=== PATIENT | female | born 1960 | race Caucasian/White ===

== ENCOUNTER 2016-09-20 16:57 | Emergency (ER) | payer OTHER ==
[~2016-09-20] VITALS: Ht 162.6 cm; Wt 88.5 kg
[2016-09-20] MEDS ORDERED: ATOR1TAB19 PO (17:05)
[2016-09-20] MEDS ORDERED: LISI-538 PO (17:05)
[2016-09-20] MEDS ORDERED: ASPI81TA21 PO (17:05)
[2016-09-20] MEDS ORDERED: ASPIRIN 81 MG CHEW TABLET PO ONE ×2 (18:00)
[2016-09-20 18:05] LABS: BASO % 0.3 % (0.0-1.0); EOS # 0.1 K/mm3 (0.0-0.50); EOS % 1.4 % (0.0-3.0); LARGE UNSTAINED CELL # 0.2 K/mm3 (0.0-0.4); LARGE UNSTAINED CELL % 2.9 % (0.0-4.0); LYMPH # 2.7 K/mm3 (1.5-4.5); LYMPH % 35.9 % (24.0-44.0); MEAN CORPUSCULAR HEMOGLOBIN 30.5 pg (27.0-33.0); MEAN CORPUSCULAR HGB CONC 33.2 g/dl (32.0-36.5); MEAN CORPUSCULAR VOLUME 91.9 fl (80.0-96.0); MONO # 0.5 K/mm3 (0.0-0.8); MONO % 7.5 % (0.0-5.0); NEUTROPHILS # 3.6 K/mm3 (1.8-7.7); NEUTROPHILS % 51.9 % (36.0-66.0); PLATELET COUNT, AUTOMATED 218 k/mm3 (150-450); RED CELL DISTRIBUTION WIDTH 12.9 % (11.5-14.5); WHITE BLOOD COUNT 6.9 K/mm3 (4.0-10.0)
[2016-09-20 18:16] LABS: ALBUMIN 3.7 GM/DL (3.2-5.2); ALBUMIN/GLOBULIN RATIO 1.16 (1.00-1.93); ALKALINE PHOSPHATASE 102 U/L (45-117); ALT/SGPT 29 U/L (12-78); ANION GAP 5 MEQ/L (8-16); AST/SGOT 22 U/L (15-37); BILIRUBIN,DIRECT 0.1 MG/DL (0.0-0.2); BILIRUBIN,TOTAL 0.5 MG/DL (0.2-1.0); BLOOD UREA NITROGEN 17 MG/DL (7-18); CALCIUM LEVEL 9.1 MG/DL (8.5-10.1); CARBON DIOXIDE LEVEL 31 MEQ/L (21-32); CHLORIDE LEVEL 106 MEQ/L (98-107); CREATININE FOR GFR 1.05 MG/DL (0.55-1.02); GLOMERULAR FILTRATION RATE 57.3 (>51); GLUCOSE, FASTING 86 MG/DL (70-105); POTASSIUM SERUM 3.9 MEQ/L (3.5-5.1); SODIUM LEVEL 142 MEQ/L (136-145); TOTAL PROTEIN 6.9 GM/DL (6.4-8.2)
[2016-09-20] MEDS ORDERED: ISOVUE-370 76% 100ML VIAL (Q9967) As Ordered ONE (18:33)
--- NOTE | 2016-09-20 19:10 | REPUSA ---
CT angiogram of the chest Clinical statement: Chest pain and shortness of breath. Technique: Multiple axial CT images were obtained from the thoracic inlet through the upper abdomen a fter a bolus administration of nonionic intravenous contrast. Coronal and sagittal reconstructions we re also obtained. No comparison is available. Findings: The pulmonary arteries are well-opacified with contrast, with no intraluminal filling defec ts to suggest embolism. The thoracic aorta is unremarkable. Thyroid gland is within normal limits. Th ere is no thoracic lymphadenopathy. There are no pericardial or pleural effusions. The lungs are dwayne r. Limited imaging of the upper abdomen does not demonstrate any acute abnormalities. There is an enh ancing left adrenal nodule measuring 2.5 x 1.9 cm. There are no suspicious osseous lesions. Impression: 1. No evidence of pulmonary embolism. 2. No acute intrapulmonary disease. 3. Left adrenal nodule.
--- NOTE | 2016-09-20 19:36 | ECGEPIP ---
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
[2016-09-20 19:52] VITALS: BP 123/74
--- NOTE | 2016-09-21 06:51 | REP ---
PORTABLE CHEST, ONE VIEW: HISTORY: Chest pain. COMPARISON: 06/18/2009. There is elevation of the right hemidiaphragm. The lungs are clear. The heart is normal in size. The pulmonary vasculature is normal in appearance. IMPRESSION: No acute disease. Signed by Nikos Pena MD 09/21/2016 08:12 A
== END 2016-09-20 19:56 | disposition home or self-care (01) ==
LOC: M ED 16:57 → EDBD 16:57 → M ED 19:56
DX: R00.2 Palpitations (principal); I10 Essential (primary) hypertension; E27.9 Disorder of adrenal gland, unspecified; Z79.82 Long term (current) use of aspirin; Z79.899 Other long term (current) drug therapy

== ENCOUNTER → 2016-12-30 | Outpatient (REF) | payer OTHER ==
[~2016-12-30] MED LIST: ASPI81TA21 PO; ATOR1TAB19 PO; LISI-538 PO
[2016-12-30 17:46] LABS: BASO # 0.1 10^3/uL (0.0-0.2); BASO % 0.8 % (0.0-1.0); EOS # 0.1 10^3/uL (0.0-0.50); EOS % 1.6 % (0.0-3.0); IMMATURE GRANULOCYTE % 0.3 % (0-0); LYMPH # 2.1 10^3/uL (1.5-4.5); LYMPH % 32.8 % (24.0-44.0); MEAN CORPUSCULAR HGB CONC 33.2 g/dl (32.0-36.5); MEAN CORPUSCULAR VOLUME 93.5 fl (80.0-96.0); MONO # 0.6 10^3/uL (0.0-0.8); MONO % 8.8 % (0.0-5.0); NEUTROPHILS # 3.6 10^3/uL (1.8-7.7); NEUTROPHILS % 55.7 % (36.0-66.0); PLATELET COUNT, AUTOMATED 239 10^3/uL (150-450); WHITE BLOOD COUNT 6.4 10^3/uL (4.0-10.0)
[2016-12-30 19:18] LABS: ALBUMIN 3.8 GM/DL (3.2-5.2); ALKALINE PHOSPHATASE 99 U/L (45-117); ALT/SGPT 31 U/L (12-78); ANION GAP 8 MEQ/L (8-16); AST/SGOT 22 U/L (15-37); BILIRUBIN,TOTAL 0.6 MG/DL (0.2-1.0); BLOOD UREA NITROGEN 13 MG/DL (7-18); CALCIUM LEVEL 9.1 MG/DL (8.5-10.1); CARBON DIOXIDE LEVEL 27 MEQ/L (21-32); CHLORIDE LEVEL 107 MEQ/L (98-107); CHOLESTEROL LEVEL 147 MG/DL (<200); CREATININE FOR GFR 0.99 MG/DL (0.55-1.02); GLOMERULAR FILTRATION RATE > 60.0 (>51); GLUCOSE, FASTING 91 MG/DL (70-105); POTASSIUM SERUM 4.4 MEQ/L (3.5-5.1); SODIUM LEVEL 142 MEQ/L (136-145); TOTAL PROTEIN 7.6 GM/DL (6.4-8.2); TRIGLYCERIDES LEVEL 156 MG/DL (<150)
== END ==
LOC: M LAB REF 16:32
PROVIDERS: ATTEND Family Medicine
DX: E78.4 Other hyperlipidemia (principal); R00.2 Palpitations; E27.8 Other specified disorders of adrenal gland; I10 Essential (primary) hypertension

== ENCOUNTER → 2017-03-29 | Outpatient (CLI) | payer OTHER ==
[~2017-03-29] MED LIST changes: -ASPI81TA21 PO; -ATOR1TAB19 PO; +ISOVUE-370 76% 100ML VIAL (Q9967) As Ordered; -LISI-538 PO
== END ==
LOC: M RAD 10:07
DX: E27.8 Other specified disorders of adrenal gland (principal)
CPT/HCPCS: Q9967

== ENCOUNTER → 2018-01-05 | Outpatient (REF) | payer OTHER ==
[2018-01-05 18:33] LABS: HEMATOCRIT 45.9 % (36.0-47.0); HEMOGLOBIN 14.9 g/dl (12.0-15.5); MEAN CORPUSCULAR HEMOGLOBIN 29.8 pg (27.0-33.0); MEAN CORPUSCULAR HGB CONC 32.5 g/dl (32.0-36.5); MEAN CORPUSCULAR VOLUME 91.8 fl (80.0-96.0); PLATELET COUNT, AUTOMATED 208 10^3/uL (150-450); RED CELL DISTRIBUTION WIDTH 13.2 % (11.5-14.5)
[2018-01-05 18:39] LABS: ALBUMIN 3.7 GM/DL (3.2-5.2); ALBUMIN/GLOBULIN RATIO 0.97 (1.00-1.93); ALKALINE PHOSPHATASE 163 U/L (45-117); ALT/SGPT 124 U/L (12-78); ANION GAP 9 MEQ/L (8-16); AST/SGOT 131 U/L (7-37); BILIRUBIN,TOTAL 0.5 MG/DL (0.2-1.0); BLOOD UREA NITROGEN 26 MG/DL (7-18); CALCIUM LEVEL 9.1 MG/DL (8.5-10.1); CARBON DIOXIDE LEVEL 24 MEQ/L (21-32); CHLORIDE LEVEL 105 MEQ/L (98-107); CHOLESTEROL LEVEL 122 MG/DL (<200); CHOLESTEROL RISK RATIO 4.692 (<5); CREATININE FOR GFR 1.02 MG/DL (0.55-1.30); GLUCOSE, FASTING 92 MG/DL (70-100); HDL CHOLESTEROL 26 MG/DL (>40); LDL CHOLESTEROL 55 MG/DL (<100); NON-HDL-C 96 MG/DL; POTASSIUM SERUM 4.8 MEQ/L (3.5-5.1); SODIUM LEVEL 138 MEQ/L (136-145); TOTAL PROTEIN 7.5 GM/DL (6.4-8.2); TRIGLYCERIDES LEVEL 203 MG/DL (<150)
[2018-01-05 18:45] LABS: ADD MANUAL DIFFER YES; DIFF SLIDE NUMBER 309; POSITIVE DIFF POS FLAG; POSITIVE MORPH POS FLAG; WHITE BLOOD COUNT 11.2 10^3/uL (4.0-10.0)
[2018-01-05 19:55] LABS: ATYPICAL LYMPH 3 % (0-5); EOSINOPHILS 1 % (0-5); LYMPHOCYTES 63 % (16-52); MONOCYTES 4 % (0-8); NEUTROPHILS 29 % (35-75)
[2018-01-05 19:56] LABS: PLATELET ESTIMATE NORMAL (NORMAL); SMUDGE CELLS 1+
== END ==
LOC: M LAB REF 16:39
DX: Z00.00 Encounter for general adult medical examination without abnormal findings (principal); J20.8 Acute bronchitis due to other specified organisms; M75.52 Bursitis of left shoulder; R22.9 Localized swelling, mass and lump, unspecified; E78.49 Other hyperlipidemia; I10 Essential (primary) hypertension
CPT/HCPCS: 80053

== ENCOUNTER → 2018-01-24 | Outpatient (REF) | payer OTHER ==
[2018-01-24 18:43] LABS: ALBUMIN 3.4 GM/DL (3.2-5.2); ALBUMIN/GLOBULIN RATIO 1.03 (1.00-1.93); ALKALINE PHOSPHATASE 97 U/L (45-117); ALT/SGPT 58 U/L (12-78); AST/SGOT 38 U/L (7-37); BILIRUBIN,DIRECT 0.2 MG/DL (0.0-0.2); BILIRUBIN,TOTAL 0.6 MG/DL (0.2-1.0); TOTAL PROTEIN 6.7 GM/DL (6.4-8.2)
[2018-01-26 08:10] LABS: HEPATITIS B SURFACE ANTIGEN NEGATIVE (NEGATIVE)
[2018-01-26 08:37] LABS: HEPATITIS C VIRUS ABY INDEX 0.2 INDEX (<0.8)
[2018-01-26 08:38] LABS: HEPATITIS B CORE ANTIBODY IGM NEGATIVE (NEGATIVE)
[2018-01-26 08:40] LABS: HEPATITIS A ANTIBODY IGM NEGATIVE (NEGATIVE)
== END ==
LOC: M LAB REF 17:48
DX: K76.89 Other specified diseases of liver (principal)
CPT/HCPCS: 80076

== ENCOUNTER 2018-02-01 10:17 | Day surgery (SDC) | payer OTHER ==
[2018-02-01] MEDS ORDERED: PROPOFOL 200 MG/20 ML VIAL As Ordered (11:11)
[2018-02-01] MEDS ORDERED: ONDANSETRON 4MG/2ML VIAL (J2405) As Ordered (11:11)
[2018-02-01] MEDS ORDERED: LIDOCAINE 2% INJ 100 MG/5 ML SDV (FOR ANES.) As Ordered (11:11)
[2018-02-01] MEDS ORDERED: KETOROLAC 60 MG/2 ML VIAL (J1885) As Ordered (11:11)
[2018-02-01] MEDS ORDERED: fentaNYL 100 MCG/2 ML INJECTION (J3010) As Ordered (11:12)
[2018-02-01] MEDS ORDERED: MIDAZOLAM INJ 2 MG/2 ML VIAL (J2250) As Ordered (11:12)
[2018-02-01] MEDS ORDERED: KETAMINE HCL 200 MG/20 ML VIAL As Ordered (11:12)
[2018-02-01] MEDS: LR 1,000 ML IV (11:14)
[2018-02-01] MEDS: ceFAZolin SOD 1 GM in D5W MINI-BAG PLUS 50 ML IV (12:32)
[2018-02-01] MEDS: BUPIVACAINE/EPIN 0.25% 30 ML VIAL As Ordered (12:45)
== END 2018-02-01 13:50 | disposition home or self-care (01) ==
LOC: M SDC 10:17
DX: D17.1 Benign lipomatous neoplasm of skin and subcutaneous tissue of trunk (principal); I49.9 Cardiac arrhythmia, unspecified; I10 Essential (primary) hypertension; R94.5 Abnormal results of liver function studies; J45.909 Unspecified asthma, uncomplicated; N28.9 Disorder of kidney and ureter, unspecified; Z91.040 Latex allergy status; Z79.899 Other long term (current) drug therapy; Z78.0 Asymptomatic menopausal state; Z98.51 Tubal ligation status
CPT/HCPCS: 21931

== ENCOUNTER → 2018-04-12 | Outpatient (CLI) | payer OTHER ==
[~2018-04-12] MED LIST changes: +ASPI81TA21 PO; +ATOR1TAB19 PO; -ISOVUE-370 76% 100ML VIAL (Q9967) As Ordered; +ISOVUE-370 76% 100ML VIAL (Q9967) As Ordered ONE; +LISI-538 PO
--- NOTE | 2018-04-13 08:27 | REP ---
Clinical: Adrenal gland disorder. Technique: Precontrast, contrast enhanced and delayed images of the abdomen using 100 ml Isovue 370 intravenous contrast material with coronal and sagittal re-formations. Comparison: 03/29/2017. Findings: As previously reported, the 2.3 cm left adrenal mass is a benign adrenal adenoma, has not changed, and requires no further investigation by imaging. The right adrenal gland is normal. Liver, spleen, pancreas, and bilateral kidneys are normal. The patient is status post cholecystectomy. The enteric system is unremarkable. No ascites. No free air. No adenopathy. 2 cm fat containing periumbilical hernia noted. Abdominal aorta without aneurysm or dissection. Osseous structures demonstrate degenerative changes without focal osseous abnormality. Impression: 1. Benign left adrenal adenoma requires no further imaging investigation. 2. Otherwise normal CT of the abdomen. Electronically Signed by Coleman Cunningham MD 04/13/2018 08:18 A
== END ==
LOC: M RAD 08:26
PROVIDERS: ATTEND Nurse Practitioner Family
DX: E27.8 Other specified disorders of adrenal gland (principal)
CPT/HCPCS: 74170; Q9967

== ENCOUNTER → 2019-01-11 | Outpatient (REF) | payer OTHER ==
[~2019-01-11] MED LIST changes: -ISOVUE-370 76% 100ML VIAL (Q9967) As Ordered ONE
[2019-01-11 17:20] LABS: BASO % 0.5 % (0.0-1.0); EOS # 0.1 10^3/uL (0.0-0.5); EOS % 1.2 % (0.0-3.0); HEMATOCRIT 49.1 % (36.0-47.0); HEMOGLOBIN 15.6 g/dl (12.0-15.5); LYMPH # 2.1 10^3/uL (1.5-5.0); LYMPH % 34.3 % (24.0-44.0); MEAN CORPUSCULAR HEMOGLOBIN 30.3 pg (27.0-33.0); MEAN CORPUSCULAR HGB CONC 31.8 g/dl (32.0-36.5); MEAN CORPUSCULAR VOLUME 95.3 fl (80.0-96.0); MONO # 0.6 10^3/uL (0.0-0.8); MONO % 9.5 % (0.0-5.0); NEUTROPHILS # 3.2 10^3/uL (1.5-8.5); NEUTROPHILS % 54.2 % (36.0-66.0); PLATELET COUNT, AUTOMATED 244 10^3/uL (150-450); RED BLOOD COUNT 5.15 10^6/uL (4.00-5.40)
[2019-01-11 17:22] LABS: ALBUMIN 3.9 GM/DL (3.2-5.2); ALT/SGPT 26 U/L (12-78); BILIRUBIN,TOTAL 0.6 MG/DL (0.2-1.0); BLOOD UREA NITROGEN 17 MG/DL (7-18); CALCIUM LEVEL 9.2 MG/DL (8.8-10.2); CARBON DIOXIDE LEVEL 28 MEQ/L (21-32); CHLORIDE LEVEL 109 MEQ/L (98-107); CHOLESTEROL LEVEL 134 MG/DL (<200); CREATININE FOR GFR 0.99 MG/DL (0.55-1.30); GLOMERULAR FILTRATION RATE > 60.0 (>45); GLUCOSE, FASTING 91 MG/DL (70-100); HDL CHOLESTEROL 50 MG/DL (>40); LDL CHOLESTEROL 63 MG/DL (<100); NON-HDL-C 84 MG/DL; POTASSIUM SERUM 4.4 MEQ/L (3.5-5.1); SODIUM LEVEL 141 MEQ/L (136-145); TOTAL PROTEIN 7.7 GM/DL (6.4-8.2); TRIGLYCERIDES LEVEL 105 MG/DL (<150)
== END ==
LOC: M LAB REF 16:37
PROVIDERS: ATTEND Family Medicine
DX: Z00.00 Encounter for general adult medical examination without abnormal findings (principal); J45.909 Unspecified asthma, uncomplicated; E78.49 Other hyperlipidemia; I10 Essential (primary) hypertension

== ENCOUNTER → 2019-11-22 | Outpatient (CLI) | payer OTHER ==
--- NOTE | 2019-12-07 07:19 | REP ---
LEFT CALCANEUS RADIOGRAPH: 11/22/19 CLINICAL: Achilles tendinitis. TECHNIQUE: Lateral and axial views of the calcaneus. FINDINGS: Moderate heel spur noted. Calcaneus and associated joint spaces and surrounding soft tissues are otherwise normal. IMPRESSION: Moderate calcaneal heel spur. Otherwise normal examination. [facility]
--- NOTE | 2019-12-07 07:20 | REP ---
LEFT ANKLE SERIES CLINICAL: Achilles tendonitis. TECHNIQUE: AP, lateral, and bilateral oblique views of the left ankle. FINDINGS: No acute fracture or dislocation. Joint spaces and ankle mortise are intact and normal. Lateral view demonstrates moderate calcaneal heel spur. IMPRESSION: Age appropriate left ankle radiographs. No significant pathology appreciated by radiographic evaluation. [facility]
== END ==
LOC: M WUC 10:02
PROVIDERS: ATTEND Physician Assistant
DX: M77.32 Calcaneal spur, left foot (principal)